=== PATIENT | female | born 1995 | race Two or more races ===

== ENCOUNTER 2025-08-28 12:01 | Emergency (ER) | payer MEDICAID, OTHER ==
[~2025-08-28] VITALS: Ht 172.7 cm; Wt 108.9 kg
[2025-08-28 12:08] VITALS: TEMP 98.3
[2025-08-28 14:31] LABS: PREGNANCY TEST URINE QUAL NEGATIVE (NEGATIVE)
[2025-08-28] MEDS ORDERED: IBUP-1490 PO (14:58)
[2025-08-28 15:06] VITALS: BP 128/80; O2SAT 98
== END 2025-08-28 15:06 | disposition home or self-care (01) ==
LOC: ER 12:09
DX: M54.50 Low back pain, unspecified (principal)
CPT/HCPCS: 72131-TC; 84703-TC